=== PATIENT | female | born 1990 | race Caucasian/White ===

== ENCOUNTER 2016-05-27 08:06 | Inpatient (IN) | payer BC ==
[2016-05-27] MEDS ORDERED: Oxytocin in LR* 20 UNITS/1,000 ML BAG IVPB SCH (10:00)
[2016-05-27 10:21] LABS: Hematocrit 27 % (35-47); Hemoglobin 8.7 g/dl (12.0-16.0); Mean Corpuscular HGB Conc 32 g/dl (31-36); Mean Corpuscular Hemoglobin 25 pg (27-31); Mean Corpuscular Volume 77 fL (80-97); Mean Platelet Volume 8 um3 (7.4-10.4); Red Cell Distribution Width 17 % (10.5-15); White Blood Count 11.5 10^3/ul (3.5-10.8)
[2016-05-27] MEDS ORDERED: Dinoprostone* 10 MG VAG.SUPP VAGINAL ONE (23:00)
[2016-05-28] MEDS ORDERED: OBEPIDURAL* 250 ML ONE (09:40)
[2016-05-28] MEDS ORDERED: Phenylephrine IV* 40 MCG/ML 10 ML SYRINGE IV PUSH PRN ×2 (11:10)
[2016-05-28] MEDS ORDERED: Sodium Citrate/Citric Acid* 15 ML UDC PO PRN (11:10)
[2016-05-28] MEDS ORDERED: Famotidine TAB* 20 MG PO PRN (11:10)
[2016-05-28] MEDS ORDERED: EPHEDrine (Pressors)* 50 MG/ML VIAL IV PUSH PRN ×2 (11:10)
[2016-05-28] MEDS ORDERED: OBEPIDURAL* 250 ML EPIDURAL SCH (12:00)
[2016-05-28] MEDS ORDERED: Witch Hazel PAD* JAR ONE (16:03)
[2016-05-28] MEDS ORDERED: Dibucaine 1% 28.35 GM TUBE ONE (16:03)
[2016-05-28] MEDS ORDERED: Mineral Oil Sterile, TOPICAL* 25 ML BTL ONE (17:31)
[2016-05-28] MEDS ORDERED: Ibuprofen TAB* 600 MG ONE (19:15)
[2016-05-28] MEDS ORDERED: Acetaminophen TAB* 325 MG PO PRN (19:19)
[2016-05-28] MEDS ORDERED: oxyCODONE/Acetamin 5/325 MG* TAB PO PRN (19:19)
[2016-05-28] MEDS ORDERED: Dibucaine 1% 28.35 GM TUBE PR PRN (19:19)
[2016-05-28] MEDS ORDERED: Witch Hazel PAD* JAR TOPICAL PRN (19:19)
[2016-05-28] MEDS ORDERED: Oxytocin in LR* 20 UNITS/1,000 ML BAG IVPB SCH (20:00)
[2016-05-29] MEDS: Docusate CAP* 100 MG PO SCH ×4 (00:03→22:56)
[2016-05-29] MEDS: Ibuprofen TAB* 600 MG PO PRN ×4 (02:05→22:56)
[2016-05-29 07:31] LABS: Hematocrit 22 % (35-47); Hemoglobin 6.9 g/dl (12.0-16.0); Mean Corpuscular HGB Conc 32 g/dl (31-36); Mean Corpuscular Hemoglobin 25 pg (27-31); Mean Corpuscular Volume 78 fL (80-97); Mean Platelet Volume 8 um3 (7.4-10.4); Red Blood Count 2.81 10^6/ul (4.0-5.4); Red Cell Distribution Width 17 % (10.5-15); White Blood Count 12.3 10^3/ul (3.5-10.8)
[2016-05-29 07:32] LABS: Add Diff/Slide Review? Slide Review Added; Comments Flag Yes
[2016-05-29 07:58] LABS: Hypochromasia 2+; Microcytosis 1+
[2016-05-29] MEDS: Ferrous Gluconate TAB* 324 MG TAB PO SCH ×2 (08:53→22:55)
[2016-05-30] MEDS: Ibuprofen TAB* 600 MG PO PRN ×2 (05:18→11:05)
[2016-05-30] MEDS: Docusate CAP* 100 MG PO SCH (07:27)
[2016-05-30] MEDS: Ferrous Gluconate TAB* 324 MG TAB PO SCH (07:27)
[2016-05-30 07:28] VITALS: BP 131/83
== END 2016-05-30 11:12 | disposition home or self-care (01) | DRG 560 ==
LOC: MCHOBOUT 08:06 → MCHOB 08:56
PROVIDERS: ADMIT Midwife; ATTEND Nurse Practitioner
PROC: 10E0XZZ Delivery of Products of Conception, External Approach (ICD-10-PCS; principal; 2016-05-28)
PROC: 3E033VJ Introduction of Other Hormone into Peripheral Vein, Percutaneous Approach (ICD-10-PCS; 2016-05-28)
PROC: 10907ZC Drainage of Amniotic Fluid, Therapeutic from Products of Conception, Via Natural or Artificial Opening (ICD-10-PCS; 2016-05-28)
PROC: 0KQM0ZZ Repair Perineum Muscle, Open Approach (ICD-10-PCS; 2016-05-28)
DX: O69.9XX0 Labor and delivery complicated by cord complication, unspecified, not applicable or unspecified (principal); D64.9 Anemia, unspecified; O70.1 Second degree perineal laceration during delivery; O90.81 Anemia of the puerperium; Z3A.39 39 weeks gestation of pregnancy; Z37.0 Single live birth
CPT/HCPCS: 36415; 76815; 85025; 86850; 86900; 86901; A9270-GY

== ENCOUNTER 2016-07-15 18:53 | Emergency (ER) | payer BC ==
--- NOTE | 2016-07-15 19:59 | UC ---
Breast Complaint - HPI Summary HPI Summary: The patient comes in today for: 1. Breast pain, near-syncope, fever/chills, sore throat, headache: Onset: Today at 4 PM. Palliative/provocative: Sleeping helps her symptoms. Quality: Ache (headache and mastalgia). Region: Breasts and head. Severity: HEadache (5/10 ), Breasts (7/10) Time: Constant. She states that her sensation of near-syncope has been happening through the day in various activities (driving, walking, getting up from bed). Associated symptoms: She was breast feeding for about 2 months and just stopped completely yesterday. She also complains dizziness (Vertigo). Fever: 99.7 Headache is bitemporal. Breasts: No discharge, no redness, no masses. Cough: None. Rhinitis: NOne. Medications: None. She had one episode of near-syncope while driving and one when she was at home and had another feeling. She was getting up from the bed and had this near- syncopal episode while walking over to her . But, she states just coming into the office here and walking back to the room she had a near- syncopal feeling and that it has been happening throughout the day. * - History of Current Complaint Hx Obtained From: Patient - Allergy/Home Medications Allergies/Adverse Reactions: Allergies Allergy/AdvReac Type Severity Reaction Status Date / Time No Known Allergies Allergy Verified 07/15/16 19:19 Home Medications: Home Medications NK [No Home Medications Reported] 07/15/16 [History Confirmed 07/15/16] PMH/Surg Hx/FS Hx/Imm Hx Previously Healthy: Yes Endocrine History Of: Denies: Diabetes, Thyroid Disease, Hyperthyroidism, Hypothyroidism, Dyslipidemia Cardiovascular History Of: Denies: Cardiac Disorders, Hypertension, Pacemaker/ICD, Myocardial Infarction , Congestive Heart Failure, Atrial Fibrillation, Deep Vein Thrombosis, Bleeding Disorders Respiratory History Of: Denies: COPD, Asthma, Bronchitis, Pneumonia, Pulmonary Embolism GI/ History Of: Denies: Gastroesophageal Reflux, Ulcer, Gastrointestinal Bleed, Gall Bladder Disease, Kidney Stones, Diverticulitis, Renal Disease, Urosepsis Neurological History Of: Denies: TIA, CVA, Dementia, Seizures, Migraine Psychological History Of: Denies: Anxiety, Depression, Bipolar Disorder, Schizophrenia, Post Traumatic Stress Disorder Cancer History Of: Denies: Lung Cancer, Colorectal Cancer, Breast Cancer, Prostate Cancer, Cervical Cancer Other History Of: Negative For: HIV, Hepatitis B, Hepatitis C, Anticoagulant Therapy - Surgical History Surgical History: None - Family History Known Family History: Negative: Cardiac Disease, Hypertension - Social History Occupation: Unemployed Alcohol Use: None Substance Use Type: None Smoking Status (MU): Former Smoker Type: Cigarettes Have You Smoked in the Last Year: No When Did the Patient Quit Smoking/Using Tobacco: 2012 - Immunization History Most Recent Influenza Vaccination: 11/28/2015 Most Recent Tetanus Shot: 10/07/14 Most Recent Pneumonia Vaccination: unsure Review of Systems Constitutional: Negative Skin: Negative Eyes: Negative ENT: Sore Throat Respiratory: Negative Cardiovascular: Negative Gastrointestinal: Negative Genitourinary: Negative Motor: Negative Neurovascular: Negative Musculoskeletal: Negative Neurological: Negative Psychological: Negative All Other Systems Reviewed And Are Negative: Yes Physical Exam Triage Information Reviewed: Yes Appearance: Well-Appearing, No Pain Distress, Well-Nourished Vital Signs: Initial Vital Signs Temp 100.3 F 07/15/16 19:09 Pulse 87 07/15/16 19:09 Resp 20 07/15/16 19:09 BP 124/83 07/15/16 19:09 Pulse Ox 100 07/15/16 19:09 Vital Signs Reviewed: Yes Eyes: Positive: Conjunctiva Clear. Negative: Discharge ENT: Positive: Hearing grossly normal. Negative: Pharyngeal erythema, Nasal congestion, Nasal drainage, TM bulging, TM dull, TM red, Tonsillar swelling, Tonsillar exudate, Trismus Dental: Negative: Gross Decay/Caries @, Dental Fracture @ Neck: Positive: Supple, Nontender, No Lymphadenopathy. Negative: Nuchal Rigidity Respiratory: Positive: Lungs clear, No respiratory distress, No accessory muscle use. Negative: Crackles, Wheezing Cardiovascular: Positive: RRR, No Murmur Abdomen Description: Positive: Nontender, No Organomegaly, Soft Musculoskeletal: Positive: Strength Intact, ROM Intact, No Edema Neurological: Positive: Muscle Tone Normal Psychological: Positive: Normal Response To Family, Consolable Skin: Positive: Other - Breasts: There is no discharge from the nipple but the patient did not allow for milking of the breats. There was no erythema or induration. Breast tissue palpated to be normal--no masses. Breast Pain Course/Dx - Course Course Of Treatment: The patient was told that her mastalgia may be within the normal considering that she just stopped nursing. However, considering that her temperature was 100.3, she may have mastitis. However, we are not able to draw a CBC which may help determine which condition she had. Also, she was told that I was concerned about her frequent feeling near-syncope sensations in different situations (sitting, walking, etc). She was told that we could get an EKG, but the work up for near syncope is more than just an EKG. And for this , my recommendation was to go to the ER. She declined. In terms of her sore throat, she was told of how we could test for strep, but she did not want that done. In terms of her headache, she was only concerned about getting ibuprofen. - Diagnoses Provider Diagnoses: Mastitis, Near syncope, Headache, Sore throat Discharge - Discharge Plan Condition: Stable Disposition: AGAINST MEDICAL ADVICE Patient Education Materials: Near Syncope (ED), and Breast Engorgement (ED) Referrals: No Primary Care Phys,NOPCP [Primary Care Provider] - As Soon As Possible (If you are not going to the ER as recommended, please reconsider if you get worse and please see your primary care provider as soon as you can. If you don't have one, please contact the physician referral service.)
[2016-07-15 20:45] VITALS: BP 116/77
== END 2016-07-15 20:35 | disposition left against medical advice (07) ==
LOC: UCEAST 18:53
DX: N61.0 Mastitis without abscess (principal); R55 Syncope and collapse; R51 Headache; J02.9 Acute pharyngitis, unspecified
CPT/HCPCS: 99212; G0463

== ENCOUNTER 2017-12-06 21:00 | Emergency (ER) | payer BC ==
[2017-12-06 21:30] LABS: ABS Basophils 0 10^3/ul (0-0.2); ABS Eosinophils 0.2 10^3/ul (0-0.6); ABS Lymphocytes 3.4 10^3/ul (1.0-4.8); ABS Monocytes 0.7 10^3/ul (0-0.8); ABS Neutrophils 6.2 10^3/ul (1.5-7.7); ABS Nucleated RBC 0 10^3/ul; Eosinophil % 2.3 % (0-6); Hematocrit 34 % (35-47); Hemoglobin 11.1 g/dl (12.0-16.0); Lymphocyte % 32.3 % (25-47); Mean Corpuscular HGB Conc 33 g/dl (31-36); Mean Corpuscular Hemoglobin 26 pg (27-31); Mean Corpuscular Volume 79 fL (80-97); Mean Platelet Volume 6.9 um3 (7.4-10.4); Nucleated Red Blood Cells % 0.1; Platelet Count 413 10^3/ul (150-450); Red Blood Count 4.33 10^6/ul (4.00-5.40); Red Cell Distribution Width 17 % (10.5-15); White Blood Count 10.6 10^3/ul (3.5-10.8)
--- NOTE | 2017-12-06 22:33 | RAD ---
EXAM: US , Transvaginal EXAM DATE/TIME: 12/06/2017 9:44 PM CLINICAL HISTORY: 27 years old, female; Signs and symptoms; Lmp or gestational age (in weeks): 8w0d; Other: Spotting; ; Additional info: 8 weeks , bleeding TECHNIQUE: Real-time transvaginal obstetrical ultrasound of the maternal pelvis and a first trimester with image documentation. Transvaginal imaging was used for better evaluation of the fetus and adnexa. COMPARISON: No relevant prior studies available. FINDINGS: EGA: 8 weeks 0 days. ROLA: 07/19/2018 (LMP = 10/11/2017). Maternal Pelvis: Uterus: Anteverted anteflexed. Measures 9.7 x 6.5 x 4.9 cm. Ovaries: Right ovary: Measures 3.0 x 2.8 x 2.1 cm for a total volume of 9.2 cc. No masses. Left ovary: Measures 3.8 x 2.2 x 1.7 cm for a total volume of 7.4 cc. No masses. : Intrauterine gestational sac which contains a yolk sac and pole although only cardiac bladder is visualized. [place]-rump length = 6 mm, correlates to 6 weeks 3 days (ROLA = 07/29/2018). Subchorionic hemorrhage: None. IMPRESSION: Intrauterine of unknown viability showing an ultrasound age of 6 weeks 3 days (ROLA = 07/29/2018). Recommend followup ultrasound in 7-10 days to confirm viability. Diagnostic Criteria for Nonviable Early in the First Trimester P Baylee, et al. for the Society of Radiologists in Ultrasound Multispecialty Panel on Early First Trimester Diagnosis of Miscarriage and Exclusion of a Viable Intrauterine . N Engl J Med 2013; 369:0509-[address]11. To contact [facility] with a general question: [facility] - [phone] For direct physician to physician contact: Physician Hotline - [phone] [facility] ([facility] Facility ID #[id number])
--- NOTE | 2017-12-06 23:00 | ED ---
GI/ HPI - HPI Summary HPI Summary: 27-year-old female LMP oct 11 presents with vaginal bleeding today. She states that it is dark brown blood. She states that she has not soaked a pad yet. She denies any bowel pain. No urinary symptoms. No fevers. Denies any history of bleeding disorders. Blood type is A+. No nausea or vomiting. no medical conditions. no history of STDs. . - History of Current Complaint Chief Complaint: EDOBProblems Time Seen by Provider: 12/06/17 22:40 Stated Complaint: 8 WKS PREG & BLEEDING Hx Last Menstrual Period: 7 WEEKS POST- Pain Intensity: 0 - Allergy/Home Medications Allergies/Adverse Reactions: Allergies Allergy/AdvReac Type Severity Reaction Status Date / Time No Known Allergies Allergy Verified 12/06/17 21:07 PMH/Surg Hx/FS Hx/Imm Hx Endocrine/Hematology History: Denies: Hx Anticoagulant Therapy, Hx Diabetes, Hx Thyroid Disease Cardiovascular History: Denies: Hx Congestive Heart Failure, Hx Deep Vein Thrombosis, Hx Hypertension , Hx Myocardial Infarction, Hx Pacemaker/ICD Respiratory History: Denies: Hx Asthma, Hx Chronic Obstructive Pulmonary Disease (COPD), Hx Lung Cancer, Hx Pneumonia, Hx Pulmonary Embolism GI History: Denies: Hx Gall Bladder Disease, Hx Gastrointestinal Bleed, Hx Ulcer, Hx Urosepsis History: Denies: Hx Kidney Stones, Hx Renal Disease Neurological History: Denies: Hx Dementia, Hx Migraine, Hx Seizures, Hx Transient Ischemic Attacks (TIA) Psychiatric History: Denies: Hx Anxiety, Hx Depression, Hx Schizophrenia, Hx Bipolar Disorder Infectious Disease History: No Infectious Disease History: Denies: Traveled Outside the [place] in Last 30 Days - Family History Known Family History: Negative: Cardiac Disease, Hypertension - Social History Alcohol Use: None Substance Use Type: Reports: None Smoking Status (MU): Former Smoker Type: Cigarettes Have You Smoked in the Last Year: No Review of Systems Negative: Fever Negative: Chest Pain Negative: Shortness Of Breath Positive: Other - vaginal bleeding All Other Systems Reviewed And Are Negative: Yes Physical Exam Triage Information Reviewed: Yes Vital Signs On Initial Exam: Initial Vitals Temp Pulse Resp BP Pulse Ox 98.0 F 95 20 131/97 100 12/06/17 21:05 12/06/17 21:05 12/06/17 21:05 12/06/17 21:05 12/06/17 21:05 Vital Signs Reviewed: Yes Appearance: Positive: Well-Appearing Skin: Positive: Warm, Dry Head/Face: Positive: Normal Head/Face Inspection Eyes: Positive: Normal, Conjunctiva Clear ENT: Positive: Pharynx normal Respiratory/Lung Sounds: Positive: Clear to Auscultation, Breath Sounds Present Cardiovascular: Positive: Normal, RRR Abdomen Description: Positive: Nontender, Soft Bowel Sounds: Positive: Present Musculoskeletal: Positive: Normal Neurological: Positive: Normal Psychiatric: Positive: Normal Diagnostics - Vital Signs Vital Signs Temp Pulse Resp BP Pulse Ox 12/06/17 21:05 98.0 F 95 20 131/97 100 - Laboratory Lab Results: Lab Results 12/06/17 12/06/17 Range/Units 21:20 21:20 WBC 10.6 (3.5-10.8) 10^3/ul RBC 4.33 (4.00-5.40) 10^6/ul Hgb 11.1 L (12.0-16.0) g/dl Hct 34 L (35-47) % MCV 79 L (80-97) fL MCH 26 L (27-31) pg MCHC 33 (31-36) g/dl RDW 17 H (10.5-15) % Plt Count 413 (150-450) 10^3/ul MPV 6.9 L (7.4-10.4) um3 Neut % (Auto) 58.6 (38-83) % Lymph % (Auto) 32.3 (25-47) % Schuyler % (Auto) 6.5 (0-7) % Eos % (Auto) 2.3 (0-6) % Baso % (Auto) 0.3 (0-2) % Absolute Neuts (auto) 6.2 (1.5-7.7) 10^3/ul Absolute Lymphs (auto) 3.4 (1.0-4.8) 10^3/ul Absolute Monos (auto) 0.7 (0-0.8) 10^3/ul Absolute Eos (auto) 0.2 (0-0.6) 10^3/ul Absolute Basos (auto) 0 (0-0.2) 10^3/ul Absolute Nucleated RBC 0 10^3/ul Nucleated RBC % 0.1 Sodium 137 (135-145) mmol/L Potassium 4.1 (3.5-5.0) mmol/L Chloride 104 (101-111) mmol/L Carbon Dioxide 25 (22-32) mmol/L Anion Gap 8 (2-11) mmol/L BUN 13 (6-24) mg/dL Creatinine 0.79 (0.51-0.95) mg/dL Est GFR ( Amer) 104.1 (>60) Est GFR (Non-Af Amer) 86.0 (>60) BUN/Creatinine Ratio 16.5 (8-20) Glucose 111 H (70-100) mg/dL Calcium 10.0 (8.6-10.3) mg/dL Total Bilirubin 0.30 (0.2-1.0) mg/dL AST 15 (13-39) U/L ALT 11 (7-52) U/L Alkaline Phosphatase 80 (34-104) U/L Total Protein 7.4 (6.4-8.9) g/dL Albumin 4.5 (3.2-5.2) g/dL Globulin 2.9 (2-4) g/dL Albumin/Globulin Ratio 1.6 (1-3) Beta HCG, Quant 8700.00 mIU/mL Result Diagrams: 12/06/17 21:20 12/06/17 21:20 Lab Statement: Any lab studies that have been ordered have been reviewed, and results considered in the medical decision making process. - Ultrasound No standard instances Ultrasound Interpretation: Positive (See Comments) - Intrauterine of unknown viability showing an ultrasound age of 6 weeks 3 days (ROLA = 07/29/2018). Recommend followup ultrasound in 7-10 days to confirm viability. Ultrasound Interpretation Completed By: Radiologist BRITTANY Course/Dx - Course Course Of Treatment: 27-year-old female LMP aug 14 presents with vaginal bleeding today. She states that it is dark brown blood. She states that she has not soaked a pad yet. She denies any bowel pain. No urinary symptoms. No fevers. Denies any history of bleeding disorders. Blood type is A+. No nausea or vomiting. no medical conditions. no history of STDs. On exam nontender abdomen. Ultrasound shows Intrauterine of unknown viability showing an ultrasound age of 6. hcg - Diagnoses Differential Diagnoses - Female: Ovarian Cyst, , Other - spontaneous Provider Diagnoses: Vaginal bleeding in Discharge - Sign-Out/Discharge Documenting (check all that apply): Patient Departure - Discharge Plan Condition: Good Disposition: HOME Patient Education Materials: Threatened Miscarriage (ED) Referrals: No Primary Care Phys,NOPCP [Primary Care Provider] - Additional Instructions: The education provided is for your information. You may or may not have a miscarriage at this point. Follow up with OBGYN primary as will need repeat hcg in 48 hours Return to ED if develop severe abdominal pain, fever, severe bleeding with symptoms such as lightheadedness or any new or worsening symptoms - Billing Disposition and Condition Condition: GOOD Disposition: Home
[2017-12-06 23:14] VITALS: BP 119/60
== END 2017-12-06 23:13 | disposition home or self-care (01) ==
LOC: ED 21:00
DX: O20.9 Hemorrhage in early pregnancy, unspecified (principal); Z3A.08 8 weeks gestation of pregnancy; Z87.891 Personal history of nicotine dependence
CPT/HCPCS: 36415; 76817; 80053; 84702; 85025; 99282

== ENCOUNTER 2019-03-22 08:00 | Inpatient (IN) | payer BC ==
[2019-03-22] MEDS ORDERED: Misoprostol TAB* 100 MCG VAGINAL ONE (08:18)
[2019-03-22] MEDS ORDERED: Buffered Lidocaine 1% SYRIN* 1 ML/SYRINGE INTRADERM ONE (08:18)
[2019-03-22] MEDS ORDERED: Lactated Ringers 1000 ML Bag* 1,000 ML IV ONE ×2 (08:18→13:30)
[2019-03-22] MEDS ORDERED: Misoprostol TAB* 100 MCG ONE (08:23)
--- NOTE | 2019-03-22 08:34 | HP ---
General Information - Reason for Visit labor induction - General Information Maternal Age: 25 Grav: 1 Para: 0 SAB: 0 IEA: 0 Estimated Due Date: 07/19/18 Determined By: LMP Maternal Blood Type and Rh: A Positive - Results this Serology/RPR Result: Non-Reactive Rubella Result: Immune HBsAg Result: Negative HIV Result: Negative GBS Culture Result: Negative Past Medical History Delivery History: See Records Pertinent Past Medical History: See Records Pertinent Past Surgical History: See Records Pertinent Family History: See Records - Antepartal Records Antepartal Records: Reviewed, Complicated by: - H/o shoulder dystocia Review of Systems Constitutional: Comfortable CV Complaint: No Respiratory: Shortness of Breath: No Gastrointestinal: No Nausea/Vomiting, Normal Bowel Movement Genitourinary: No Dysuria, No Bleeding, No Leaking Fluid Musculoskeletal: No Complaint Neurological: No Headache Movement: Normal Exam Allergies/Adverse Reactions: Allergies No Known Allergies Allergy (Verified 12/06/17 21:07) T: 97.4 BP: 124/74 P :94 - Measurements Height: 5 ft 2 in Weight: 205 lb Body Mass Index (BMI): 37.5 Pre- Weight: 178 lb - Exam Breast: Breast Exam Deferred CVA: No CVA Tenderness Extremities: No Edema Heart: Normal Rhythm/Heart Sounds HEENT: No Significant Findings Lungs: Clear Bilaterally Rectal: Rectal Exam Deferred Reflexes: DTR 2+ Thyroid: No Thyromegaly - Abdominal Exam Abdomen Exam: Non-Tender - Ultrasound/Biophysical Profile Ultrasound Status: Not Done Targeted Exam Findings Cervical Exam: 2cm Effacement: Thick Station: -1 Presenting Part: Vertex Membrane Status: Intact EFM Findings - External Monitor Findings Baseline Heart Rate: 140 External Monitor Findings: Accelerations Present, No Pattern of Variable or Late Decelerations, Variability Moderate, Baseline Stable Contractions: None Assessment/Plan - Assessment Pt 28 yo at 39 1/7 weeks for induction given h/o shoulder dystocia. - Plan Plan: Cervical Ripening, Admit - Anticipate Vaginal Delivery
[2019-03-22] MEDS ORDERED: Lactated Ringers 1000 ML Bag* 1,000 ML IV SCH ×4 (09:00→22:00)
[2019-03-22 09:56] LABS: ABS Eosinophils 0.1 10^3/ul (0-0.6); ABS Lymphocytes 1.8 10^3/ul (1.0-4.8); ABS Monocytes 0.8 10^3/ul (0-0.8); ABS Neutrophils 7.8 10^3/ul (1.5-7.7); Eosinophil % 0.8 %; Hematocrit 29 % (35-47); Hemoglobin 9.7 g/dL (12.0-16.0); Lymphocyte % 16.9 %; Mean Corpuscular HGB Conc 34 g/dL (31-36); Mean Corpuscular Hemoglobin 26 pg (27-31); Mean Corpuscular Volume 78 fL (80-97); Mean Platelet Volume 7.6 fL (7.4-10.4); Platelet Count 334 10^3/uL (150-450); Red Blood Count 3.69 10^6 /uL (3.70-4.87); Red Cell Distribution Width 17 % (10-15); White Blood Count 10.5 10^3/uL (3.5-10.8)
[2019-03-22 10:21] LABS: Urine Benzodiazepine Screen None Detected (None Detect); Urine Opiates Screen None Detected (None Detect)
[2019-03-22] MEDS ORDERED: OBEPIDURAL* 250 ML EPIDURAL ONE (12:23)
[2019-03-22] MEDS ORDERED: Phenylephrine 40 MCG/ML SYRINGE IV PUSH PRN ×2 (13:30)
[2019-03-22] MEDS ORDERED: Lactated Ringers 1000 ML Bag* 500 ML IV PRN ×2 (13:30)
[2019-03-22] MEDS ORDERED: Sodium Citrate/Citric Acid* 15 ML UDC PO PRN (13:30)
[2019-03-22] MEDS ORDERED: Famotidine IV* 10 MG/ML 2 ML (20 mg) IV PRN (13:30)
[2019-03-22] MEDS ORDERED: Famotidine TAB* 20 MG PO PRN (13:30)
[2019-03-22] MEDS ORDERED: OBEPIDURAL* 250 ML EPIDURAL SCH (14:00)
[2019-03-22] MEDS ORDERED: Oxytocin in LR* 20 UNITS/1,000 ML BAG IVPB SCH ×2 (15:00→22:00)
[2019-03-22] MEDS ORDERED: Oxytocin in LR* 20 UNITS/1,000 ML BAG IVPB ONE (15:05)
[2019-03-22] MEDS ORDERED: Bupivacaine 0.5% SDV PF* 30ML VIAL ONE (19:42)
[2019-03-22] MEDS ORDERED: Dibucaine 1% 28.35 GM TUBE PR PRN (21:31)
[2019-03-22] MEDS ORDERED: Glycerin ADULT SUPP PR PRN (21:31)
[2019-03-22] MEDS ORDERED: Acetaminophen TAB* 325 MG PO PRN (21:31)
[2019-03-22] MEDS ORDERED: Witch Hazel PAD* JAR TOPICAL PRN (21:31)
--- NOTE | 2019-03-22 21:45 | PROCNOTE ---
[facility] OB: Delivery Note - Delivery A Date of : 03/22/19 Time of : 21:06 Sex: Female Score 1 Minute: 9 Score 5 Minutes: 9 Gestational Age in Weeks and Days at Delivery: 39 Weeks and 0 Days Delivery Method: Spontaneous Vaginal Labor: Spontaneous Did Patient attempt ?: N/A, No Previous Amniotic Fluid: Clear Estimated Blood Loss: 300 Anesthesia/Analgesia: CEI for Labor Delivered By: Anali Smith - Nursery Level of Nursery: Regular/Bedside - Perineum Perineal Injury: 2nd Degree Perineal Injury Comment: repaire with 2.0 vicryl X2 standard fashion Perineal Repair: By Delivering Practioner - Events Delivery Events of Note: Pitocin During Labor - Additional Delivery Notes Additional Delivery Notes: placenta 3 VC/ intact / spontanous
[2019-03-23] MEDS: Ibuprofen TAB* 600 MG PO PRN ×3 (02:29→20:50)
[2019-03-23] MEDS ORDERED: Simethicone TAB* 80 MG TAB.CHEW PO SCH (08:30)
[2019-03-23 08:44] LABS: ABS Eosinophils 0.1 10^3/ul (0-0.6); ABS Lymphocytes 1.8 10^3/ul (1.0-4.8); ABS Monocytes 0.7 10^3/ul (0-0.8); Eosinophil % 0.7 %; Hematocrit 27 % (35-47); Hemoglobin 8.8 g/dL (12.0-16.0); Mean Corpuscular HGB Conc 33 g/dL (31-36); Mean Corpuscular Hemoglobin 26 pg (27-31); Mean Corpuscular Volume 78 fL (80-97); Mean Platelet Volume 7.5 fL (7.4-10.4); Nucleated Red Blood Cells % 0.1; Platelet Count 274 10^3/uL (150-450); Red Blood Count 3.43 10^6 /uL (3.70-4.87); Red Cell Distribution Width 17 % (10-15); White Blood Count 12.5 10^3/uL (3.5-10.8)
[2019-03-23] MEDS ORDERED: Prenatal Vitamin TAB PO SCH (09:00)
[2019-03-23] MEDS: Ferrous Gluconate TAB* 324 MG TAB PO SCH ×2 (09:57→20:51)
[2019-03-23] MEDS: Docusate CAP* 100 MG PO SCH ×2 (20:50→21:00)
[2019-03-24 07:12] VITALS: BP 118/76
[2019-03-24] MEDS: Ferrous Gluconate TAB* 324 MG TAB PO SCH (09:26)
[2019-03-24] MEDS: Ibuprofen TAB* 600 MG PO PRN (09:26)
[2019-03-24] MEDS: Docusate CAP* 100 MG PO SCH (09:27)
== END 2019-03-24 10:44 | disposition home or self-care (01) | DRG 560 ==
LOC: MCHOBOUT 08:00 → MCHOB 08:21
PROVIDERS: ADMIT Obstetrics & Gynecology; ATTEND Obstetrics & Gynecology
PROC: 10E0XZZ Delivery of Products of Conception, External Approach (ICD-10-PCS; principal; 2019-03-22)
PROC: 4A1HXCZ Monitoring of Products of Conception, Cardiac Rate, External Approach (ICD-10-PCS; 2019-03-22)
PROC: 10907ZC Drainage of Amniotic Fluid, Therapeutic from Products of Conception, Via Natural or Artificial Opening (ICD-10-PCS; 2019-03-22)
PROC: 3E0P7VZ Introduction of Hormone into Female Reproductive, Via Natural or Artificial Opening (ICD-10-PCS; 2019-03-22)
PROC: 0KQM0ZZ Repair Perineum Muscle, Open Approach (ICD-10-PCS; 2019-03-22)
DX: O99.03 Anemia complicating the puerperium (principal); Z37.0 Single live birth; O70.1 Second degree perineal laceration during delivery; Z3A.39 39 weeks gestation of pregnancy
CPT/HCPCS: 36415; 80307; 85025; 86850; 86900; 86901; A9270-GY; G0480; J3490; S0191